=== PATIENT | female | born 1995 | race Caucasian/White ===

== ENCOUNTER 2022-08-21 22:27 | Emergency (ER) | payer MEDICAID, SELFPAY ==
[2022-08-21 22:29] VITALS: BP 112/61; PULSE 84; RESP 18; TEMP 36.8; O2SAT 96; BMI 33.3
[2022-08-21 23:56] LABS: Basophils # 0.1 K/mm3 (0-0.2); Basophils % 2.1 % (0.1-2.0); Eosinophils # 0.1 K/mm3 (0.0-0.4); Eosinophils % 1.8 % (0.1-12.0); Hematocrit 43.6 % (37.0-47.0); Hemoglobin 15.7 g/dL (12.2-16.2); Lymphocytes # 2.4 K/mm3 (0.7-4.5); Lymphocytes % 40.9 % (10-50); Mean Corpuscular Hemoglobin 32.5 pg (27.0-31.2); Mean Corpuscular Volume 90.3 fl (81-99); Mean Platelet Volume 7.4 fl (7.4-10.4); Monocytes # 0.4 K/mm3 (0.1-1.0); Monocytes % 6.1 % (1.7-9.3); Neutrophils # 2.9 K/mm3 (1.8-7.8); Neutrophils % 49.1 % (37.0-80.0); Platelet Count 178 K/mm3 (142-424); Red Blood Count 4.83 M/mm3 (4.20-5.40); Red Cell Distribution Width 12.6 % (11.5-17.5); White Blood Count 5.9 K/mm3 (4.8-10.8)
[2022-08-21 23:57] LABS: Chloride 104 mmol/L (98-107); Potassium 3.7 mmoL/L (3.5-5.1); Sodium 143 mmol/L (136-145)
[2022-08-22] LABS: Alanine Aminotransferase 21 U/L (12-78); Albumin Level 4.4 g/dl (3.5-5.0); Albumin/Globulin Ratio 1.3 (1.1-1.8); Alkaline Phosphatase 59 U/L (38-126); Anion Gap 13.7 mEq/L (5-15); Aspartate Amino Transferase 31 U/L (14-36); Bilirubin,Total 0.4 mg/dl (0.2-1.3); Blood Urea Nitrogen 4 mg/dl (7-17); Calcium 9.2 mg/dl (8.4-10.2); Carbon Dioxide 29 mmol/L (22.0-30.0); Creatinine Clearance Estimated 207 mL/min (50-200); Estimated Glomerular Filt Rate 123 ml/min (>60); GFR (African American) 149 ML/MIN (>60); Globulin 3.4 g/dL (1.3-3.2); Glucose 76 mg/dl (74-100); Total Protein,Serum 7.8 g/dl (6.3-8.2)
--- NOTE | 2022-08-22 00:45 | HMH.EDWNDL ---
Discharge Plan Disposition Patient Disposition: Home, Self-Care Prescriptions Prescriptions: New azithromycin [azithromycin] 250 mg tablet 250 mg PO DIRECTED Qty: 6 0RF Rx Instructions: Take two (2) tablets on day #1, then one (1) tablet day #2 thru #5 amoxicillin-pot clavulanate [Augmentin] 500-125 mg tablet 1 tab PO TID Qty: 30 0RF No Action pseudoephedrine HCl [Sudogest] 30 mg tablet 30 mg PO Q6HP PRN (Reason: Cough) Label Comments: TAKE 1 TABLET BY MOUTH EVERY 6 HOURS NEEDED FOR CONGESTION. Referrals Follow up/Referrals: Jaye Elias APRN [Primary Care Provider] - See instructions Clinical Impressions Clinical Impression: Cat bite of forearm Instructions Patient Instructions: DI for Cat Bite Discharge ED Provider: Zenon Hillman Wound/Laceration HPI General Chief Complaint: Wound/Laceration Stated Complaint: right arm numbness pain Time Seen by Provider: 08/22/22 00:45 Mode of Arrival: Ambulatory Source of Information: Patient Limitations: No Limitations Description of Symptoms (Recalled from ER Triage Doc. by RN): pt states that she was bit by her cat and scratched by her cat on her right arm on Saturday. Patient states that today at approx 1500 she began to have right arm numbness that begins in her right wrist and radiates into her upper arm/shoulder. States that her arm feels like its waking up from being asleep . Denies any jaw or chest pain. Denies any fever since Saturday. (Does report being seen in the [facility] for an upper respiratory infection Saturday). History of Present Illness HPI narrative: rt arm feels tingling with recent cat bite and scratches rt upper ext w/o fever and no swollen nodes - her cat with intact shots Onset (ago): day(s) Extremity Location: Right: forearm Place: home Patient tetanus UTD: No Related Data Home Medications Medication Instructions Recorded Confirmed pseudoephedrine HCl 30 mg tablet 30 mg PO Q6HP PRN Cough 08/21/22 08/21/22 (Sudogest) Previous Rx's Medication Instructions Recorded amoxicillin 500 mg-potassium 1 tab PO TID #30 tabs 08/22/22 clavulanate 125 mg tablet (Augmentin) azithromycin 250 mg tablet 250 mg PO DIRECTED #6 tabs 08/22/22 Allergies Allergy/AdvReac Type Severity Reaction Status Date / Time No Known Allergies Allergy Unverified 10/01/17 14:13 PFSH PFSH Social History Smoking Status: Current every day smoker alcohol intake: never current occupational status: employed Travel in the last 8 weeks: None ROS Obtained: Yes All systems reviewed & no additional complaints except as documented Physical Exam General General appearance: alert Head Head exam: normocephalic Eye Eye exam: Present PERRL and EOMI ENT ENT exam: Present mucous membranes moist Neck Neck exam: Present trachea midline Respiratory Respiratory exam: Absent respiratory distress Cardiovascular Cardiovascular exam: Present regular rate Abdominal Exam Abdominal exam: Present soft Expanded Upper Extremity Exam Right: Forearm/Wrist exam: Present full ROM, tenderness, swelling and other (scratches noted - no abscess ) Neuromotor exam: Normal wrist extension Neurological Exam Neurological exam: Present alert, oriented X3 and CN II-XII intact Skin Skin exam: Present other (sratches noted ) Medical Decision Making Medical Records Medical records reviewed: Yes I reviewed the patient's medical records. [place] Inquiry Pt receiving controlled substance: No Vital Signs: 08/21/22 22:29 Temperature 98.3 F Temperature Source Oral Pulse Rate [Apical] 84 Respiratory Rate 18 Blood Pressure [Right Arm] 112/61 Blood Pressure Mean [Right Arm] 78 Blood Pressure Source [Right Arm] Automatic Cuff Blood Pressure Position [Right Arm] Sitting 02 Sat by Pulse Oximetry 96 Oxygen Delivery Method Room Air Lab Data Lab results reviewed: Yes I reviewed the patient's lab results. Lab Result
[2022-08-22 01:06] VITALS: BP 110/60; PULSE 82; RESP 18; TEMP 36.6; O2SAT 99
--- NOTE | 2022-08-22 01:15 | PC.NURSE ---
Patient needed a work note excusing her until after 0900. 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 Work note provided.
== END 2022-08-22 01:17 | disposition home or self-care (01) ==
PROVIDERS: Emergency Provider Emergency Medicine; PCP Nurse Practitioner
DX: S51.851A Open bite of right forearm, initial encounter (principal); R20.2 Paresthesia of skin; F17.200 Nicotine dependence, unspecified, uncomplicated; Z23 Encounter for immunization; W55.01XA Bitten by cat, initial encounter
CPT/HCPCS: 80053; 85025; 90471; 90715; 99284